=== PATIENT | male | born 1950 | race Caucasian/White ===

== ENCOUNTER 2021-09-02 07:18 | Inpatient (IN) ==
[2021-09-02] MEDS ORDERED: SODIUM CHLORIDE 0.9% 1,000 ML IV STA ×3 (11:27→13:39)
[2021-09-02 12:03] LABS: Basophils # 0.1 10*3/uL (0.0-0.2); Basophils % 0.6 % (0.0-0.8); Eosinophils # 0.3 10*3/uL (0.0-0.87); Eosinophils % 1.7 % (0.00-10.9); Hemoglobin 15.4 GM/DL (14.0-18.0); Immature Granulocytes % 4.2 %; Immature Granulocytes Absolute 0.73 #; Lymphocytes # 2.4 10*3/uL (1.4-4.0); Lymphocytes % 13.8 % (21.2-54.2); Mean Corpuscular HGB Conc 33.5 GM/DL (32-36); Mean Corpuscular Volume 86.6 FL (87-102); Mean Platelet Volume 8.9 FL (9.6-12.0); Monocytes % 7.6 % (1.7-12.7); Neutrophils % 72.1 % (38.7-73.9); Platelet Count 279 T/CUMM (130-400); Red Blood Count 5.31 MC/CUMM (3.8-5.5); Red Cell Distribution Width 14.4 % (9.3-17.3); White Blood Count 17.2 T/CUMM (4-12)
[2021-09-02 12:07] LABS: Bilirubin,Urine Negative (Negative); Blood, Urine Negative (Negative); Glucose,Urine (UA) Negative (Negative); Hyaline Casts,Urine 49 /LPF (0-3); Ketones,Urine Negative (Negative); Mucus,Urine Many /LPF (Occasional); Nitrite,Urine Negative (Negative); Protein,Urine Negative; Urine Appearance Slightly Hazy (Clear); Urine Color Amber (Yellow); Urine Specific Gravity 1.021 (1.001-1.035); Urine Urobilinogen < 2.0 EU/DL (<2.0)
[2021-09-02 12:36] LABS: Albumin 2.9 G/DL (3.4-5.0); Bilirubin,Total 1.7 MG/DL (0.20-1.00); Calcium 8.9 MG/DL (8.5-10.1); Osmolality,Calculated 272.2 MOS/KG (273-304); Potassium 4.4 MMOL/L (3.5-5.1); Total Protein 7.3 G/DL (6.4-8.2)
[2021-09-02 12:43] LABS: Band Neutrophils 6 % (0-10); Lymphocytes 16 % (20-55); Metamyelocytes 1 %; Myelocytes 1 %; Platelet Estimate Normal; Segmented Neutrophils 68 % (50-85); Total Cells Counted 100
[2021-09-02 12:44] LABS: Anisocytosis Slight
[2021-09-02] MEDS ORDERED: CIPROFLOXACIN INJ 400 MG/200 ML PREMIX IV STA (13:48)
[2021-09-02] MEDS ORDERED: metroNIDAZOLE INJ 500 MG/100 ML PREMIX IV STA (13:48)
[2021-09-02] MEDS ORDERED: DEXTROSE 10% 250 ML BAG IV PRN (13:49)
[2021-09-02] MEDS ORDERED: GLUCAGON 1 MG VIAL IM PRN (13:49)
[2021-09-02] MEDS ORDERED: ONDANSETRON 4 MG/2 ML VIAL IV PRN (13:49)
[2021-09-02] MEDS ORDERED: MORPHINE 2 MG/1 ML SYRINGE IV PRN (13:49)
[2021-09-02] MEDS ORDERED: ACETAMINOPHEN 325 MG TABLET PO PRN (13:49)
[2021-09-02] MEDS: CIPROFLOXACIN INJ 400 MG/200 ML PREMIX IV SCH (14:47)
[2021-09-02] MEDS: ENOXAPARIN 40 MG/0.4 ML SYRINGE SUBCUT SCH (14:51)
[2021-09-02] MEDS: metroNIDAZOLE INJ 500 MG/100 ML PREMIX IV SCH ×2 (15:57→22:23)
[2021-09-02] MEDS: SODIUM CHLORIDE 0.9% 1,000 ML IV SCH ×2 (16:28→22:24)
[2021-09-03] MEDS: CIPROFLOXACIN INJ 400 MG/200 ML PREMIX IV SCH ×2 (01:59→16:01)
[2021-09-03 05:10] LABS: Basophils # 0.1 10*3/uL (0.0-0.2); Basophils % 0.9 % (0.0-0.8); Eosinophils # 0.3 10*3/uL (0.0-0.87); Eosinophils % 3.1 % (0.00-10.9); Hematocrit 40.4 VOL% (42.0-52.0); Hemoglobin 12.9 GM/DL (14.0-18.0); Immature Granulocytes % 3.3 %; Lymphocytes # 1.5 10*3/uL (1.4-4.0); Lymphocytes % 15.8 % (21.2-54.2); Mean Corpuscular HGB Conc 31.9 GM/DL (32-36); Mean Corpuscular Volume 91.2 FL (87-102); Mean Platelet Volume 10.5 FL (9.6-12.0); Monocytes % 9.9 % (1.7-12.7); Platelet Count 140 T/CUMM (130-400); Red Blood Count 4.43 MC/CUMM (3.8-5.5); Red Cell Distribution Width 14.6 % (9.3-17.3); White Blood Count 9.2 T/CUMM (4-12)
[2021-09-03 05:31] LABS: Calcium 8.1 MG/DL (8.5-10.1); Osmolality,Calculated 264.5 MOS/KG (273-304); Potassium 4.4 MMOL/L (3.5-5.1)
[2021-09-03] MEDS: metroNIDAZOLE INJ 500 MG/100 ML PREMIX IV SCH ×3 (06:22→21:33)
[2021-09-03] MEDS: SODIUM CHLORIDE 0.9% 1,000 ML IV SCH ×2 (06:24→16:02)
[2021-09-03] MEDS: PANTOPRAZOLE 40 MG TABLET PO SCH (08:02)
[2021-09-03] MEDS: ENOXAPARIN 40 MG/0.4 ML SYRINGE SUBCUT SCH (13:42)
[2021-09-03] MEDS ORDERED: BENZONATATE 100 MG CAPSULE PO PRN (14:34)
[2021-09-04] MEDS: SODIUM CHLORIDE 0.9% 1,000 ML IV SCH ×2 (00:47→11:55)
[2021-09-04] MEDS: CIPROFLOXACIN INJ 400 MG/200 ML PREMIX IV SCH ×2 (02:11→16:05)
[2021-09-04] MEDS: metroNIDAZOLE INJ 500 MG/100 ML PREMIX IV SCH ×3 (04:55→20:27)
[2021-09-04 05:33] LABS: Basophils # 0.1 10*3/uL (0.0-0.2); Basophils % 0.7 % (0.0-0.8); Eosinophils # 0.3 10*3/uL (0.0-0.87); Eosinophils % 3.4 % (0.00-10.9); Hematocrit 35.4 VOL% (42.0-52.0); Hemoglobin 11.7 GM/DL (14.0-18.0); Immature Granulocytes % 1.8 %; Immature Granulocytes Absolute 0.15 #; Lymphocytes # 1.3 10*3/uL (1.4-4.0); Lymphocytes % 15.9 % (21.2-54.2); Mean Corpuscular HGB Conc 33.1 GM/DL (32-36); Mean Corpuscular Volume 87.6 FL (87-102); Mean Platelet Volume 8.9 FL (9.6-12.0); Monocytes % 12.2 % (1.7-12.7); Platelet Count 199 T/CUMM (130-400); Red Blood Count 4.04 MC/CUMM (3.8-5.5); Red Cell Distribution Width 14.3 % (9.3-17.3); White Blood Count 8.4 T/CUMM (4-12)
[2021-09-04 05:54] LABS: Osmolality,Calculated 261.5 MOS/KG (273-304); Potassium 3.8 MMOL/L (3.5-5.1)
[2021-09-04] MEDS: PANTOPRAZOLE 40 MG TABLET PO SCH (08:38)
[2021-09-04] MEDS ORDERED: LEVOTHYROXINE 75 MCG TABLET PO SCH (09:00)
[2021-09-04] MEDS: ASPIRIN EC 325 MG TABLET PO SCH (09:43)
[2021-09-04] MEDS: CHOLECALCIFEROL 5,000 UNIT TABLET PO SCH (09:43)
[2021-09-04] MEDS: HYDROmorphone 2 MG/1 ML VIAL IV PRN ×2 (10:01→18:10)
[2021-09-04] MEDS: ENOXAPARIN 40 MG/0.4 ML SYRINGE SUBCUT SCH (14:18)
[2021-09-04] MEDS: predniSONE 20 MG TABLET PO SCH (16:06)
[2021-09-05] MEDS: SODIUM CHLORIDE 0.9% 1,000 ML IV SCH
[2021-09-05] MEDS: CIPROFLOXACIN INJ 400 MG/200 ML PREMIX IV SCH (02:26)
[2021-09-05] MEDS: metroNIDAZOLE INJ 500 MG/100 ML PREMIX IV SCH (05:02)
[2021-09-05 05:24] LABS: Basophils % 0.3 % (0.0-0.8); Eosinophils % 0.6 % (0.00-10.9); Hematocrit 33.9 VOL% (42.0-52.0); Hemoglobin 11.2 GM/DL (14.0-18.0); Immature Granulocytes % 1.4 %; Immature Granulocytes Absolute 0.09 #; Lymphocytes # 0.9 10*3/uL (1.4-4.0); Lymphocytes % 14.3 % (21.2-54.2); Mean Corpuscular Volume 86.9 FL (87-102); Mean Platelet Volume 9.1 FL (9.6-12.0); Monocytes % 10.7 % (1.7-12.7); Neutrophils % 72.7 % (38.7-73.9); Platelet Count 222 T/CUMM (130-400); Red Cell Distribution Width 14.2 % (9.3-17.3); White Blood Count 6.4 T/CUMM (4-12)
[2021-09-05 05:55] LABS: Calcium 8.4 MG/DL (8.5-10.1); Osmolality,Calculated 268.2 MOS/KG (273-304)
[2021-09-05 05:57] LABS: Risk Ratio 3.39; VLDL Cholesterol 18.4 MG/DL
[2021-09-05] MEDS ORDERED: LEVOTHYROXINE 150 MCG TABLET PO SCH (06:30)
[2021-09-05] MEDS: predniSONE 20 MG TABLET PO SCH (08:48)
[2021-09-05] MEDS: ASPIRIN EC 325 MG TABLET PO SCH (08:49)
[2021-09-05] MEDS: PANTOPRAZOLE 40 MG TABLET PO SCH (08:49)
[2021-09-05] MEDS: CHOLECALCIFEROL 5,000 UNIT TABLET PO SCH (08:49)
[2021-09-05 12:28] VITALS: BP 116/60
[2021-09-05] MEDS ORDERED: metroNIDAZOLE 500 MG TABLET PO SCH (15:00)
[2021-09-05] MEDS ORDERED: CIPROFLOXACIN 500 MG TABLET PO SCH (21:00)
== END 2021-09-05 13:17 | disposition home or self-care (01) | DRG 392 ==
LOC: SUATTDRO → N.ED 07:18 → N.EDINP 13:49 → N.5E 19:10
PROVIDERS: ADMIT Internal Medicine; ATTEND Internal Medicine

== ENCOUNTER 2021-10-21 12:11 | Inpatient (IN) ==
[2021-10-21] MEDS ORDERED: SODIUM CHLORIDE 0.9% 1,000 ML IV STA (12:32)
[2021-10-21] MEDS ORDERED: LEVOFLOXACIN INJ 750 MG/150 ML PREMIX IV STA (12:32)
[2021-10-21 13:25] LABS: Bacteria,Urine Occasional /HPF (Few); Mucus,Urine Few /LPF (Occasional); RBC,Urine 5 /HPF (0-4); Squamous Epithelial Cell,Urine Occasional /HPF (0-10)
[2021-10-21 13:28] LABS: Bilirubin,Urine Negative (Negative); Blood, Urine Negative (Negative); Glucose,Urine (UA) Negative (Negative); Ketones,Urine Negative (Negative); Nitrite,Urine Negative (Negative); Protein,Urine Negative (Negative); Urine Appearance Clear (Clear); Urine Color Yellow (Yellow); Urine Specific Gravity > 1.030 (1.001-1.035); Urine Urobilinogen 0.2 eU/dL (<2.0)
[2021-10-21 13:34] LABS: Albumin 2.9 G/DL (3.4-5.0); Bilirubin,Total 0.5 MG/DL (0.20-1.00); Calcium 8.5 MG/DL (8.5-10.1); Potassium 4.3 MMOL/L (3.5-5.1); Total Protein 6.8 G/DL (6.4-8.2)
[2021-10-21 13:57] LABS: Basophils # 0.1 10*3/uL (0.0-0.2); Basophils % 0.5 % (0.0-0.8); Eosinophils # 0.3 10*3/uL (0.0-0.87); Eosinophils % 2.8 % (0.00-10.9); Hematocrit 36.5 VOL% (42.0-52.0); Hemoglobin 11.8 GM/DL (14.0-18.0); Immature Granulocytes % 0.9 %; Immature Granulocytes Absolute 0.09 #; Lymphocytes % 20.3 % (21.2-54.2); Mean Corpuscular HGB Conc 32.3 GM/DL (32-36); Mean Corpuscular Volume 91.3 FL (87-102); Mean Platelet Volume 8.9 FL (9.6-12.0); Monocytes % 10.7 % (1.7-12.7); Neutrophils % 64.8 % (38.7-73.9); Platelet Count 240 T/CUMM (130-400); Red Cell Distribution Width 14.7 % (9.3-17.3); White Blood Count 9.9 T/CUMM (4-12)
[2021-10-21] MEDS ORDERED: GLUCAGON 1 MG VIAL IM PRN (14:41)
[2021-10-21] MEDS ORDERED: ONDANSETRON 4 MG/2 ML VIAL IV PRN (14:41)
[2021-10-21] MEDS ORDERED: ACETAMINOPHEN 325 MG TABLET PO PRN (14:41)
[2021-10-21] MEDS ORDERED: hydrALAZINE 20 MG/1 ML VIAL IV PRN (14:41)
[2021-10-21] MEDS ORDERED: DEXTROSE 10% 250 ML BAG IV PRN (14:47)
[2021-10-21] MEDS: LACTATED RINGERS 1,000 ML IV SCH (15:20)
[2021-10-21] MEDS: metroNIDAZOLE INJ 500 MG in PREMIX 1 EACH IV SCH ×2 (15:20→23:16)
[2021-10-21] MEDS: PANTOPRAZOLE 40 MG VIAL IV SCH (15:26)
[2021-10-21] MEDS: MORPHINE 2 MG/1 ML SYRINGE IV PRN ×3 (15:49→23:19)
[2021-10-22] MEDS: LACTATED RINGERS 1,000 ML IV SCH ×3 (01:27→20:58)
[2021-10-22] MEDS ORDERED: CIPROFLOXACIN INJ 400 MG/200 ML PREMIX IV SCH (01:30)
[2021-10-22 05:38] LABS: Basophils % 0.4 % (0.0-0.8); Eosinophils # 0.3 10*3/uL (0.0-0.87); Eosinophils % 3.3 % (0.00-10.9); Hematocrit 35.1 VOL% (42.0-52.0); Hemoglobin 11.5 GM/DL (14.0-18.0); Immature Granulocytes % 0.9 %; Immature Granulocytes Absolute 0.08 #; Lymphocytes # 1.7 10*3/uL (1.4-4.0); Lymphocytes % 19.5 % (21.2-54.2); Mean Corpuscular HGB Conc 32.8 GM/DL (32-36); Mean Corpuscular Volume 89.8 FL (87-102); Mean Platelet Volume 9.1 FL (9.6-12.0); Monocytes % 9.9 % (1.7-12.7); Platelet Count 222 T/CUMM (130-400); Red Blood Count 3.91 MC/CUMM (3.8-5.5); Red Cell Distribution Width 14.6 % (9.3-17.3); White Blood Count 8.5 T/CUMM (4-12)
[2021-10-22 06:15] LABS: Calcium 8.1 MG/DL (8.5-10.1); Osmolality,Calculated 271.7 MOS/KG (273-304); Potassium 3.6 MMOL/L (3.5-5.1)
[2021-10-22] MEDS: metroNIDAZOLE INJ 500 MG in PREMIX 1 EACH IV SCH (09:43)
[2021-10-22] MEDS: PANTOPRAZOLE 40 MG VIAL IV SCH ×2 (09:44→20:57)
[2021-10-22] MEDS ORDERED: predniSONE 20 MG TABLET PO SCH (13:00)
[2021-10-22] MEDS ORDERED: COLCHICINE 0.6 MG CAPSULE PO ONE (14:00)
[2021-10-22] MEDS ORDERED: HYDROmorphone 1 MG/1 ML SYRINGE IV PRN ×2 (14:02)
[2021-10-22] MEDS: MEROPENEM 500 MG in SODIUM CHLORIDE 0.9% 100 ML IV SCH ×2 (14:21→20:57)
[2021-10-22] MEDS: oxyCODONE/ACETAMINOPHEN 5-325 MG TABLET PO PRN (17:58)
[2021-10-23] MEDS: MEROPENEM 500 MG in SODIUM CHLORIDE 0.9% 100 ML IV SCH ×4 (02:28→20:06)
[2021-10-23 03:59] LABS: Basophils % 0.4 % (0.0-0.8); Eosinophils # 0.3 10*3/uL (0.0-0.87); Eosinophils % 3.5 % (0.00-10.9); Hemoglobin 12.1 GM/DL (14.0-18.0); Immature Granulocytes % 0.7 %; Immature Granulocytes Absolute 0.05 #; Lymphocytes # 1.8 10*3/uL (1.4-4.0); Lymphocytes % 24.2 % (21.2-54.2); Mean Corpuscular HGB Conc 32.7 GM/DL (32-36); Mean Corpuscular Volume 89.2 FL (87-102); Mean Platelet Volume 8.9 FL (9.6-12.0); Monocytes % 9.5 % (1.7-12.7); Neutrophils % 61.7 % (38.7-73.9); Platelet Count 230 T/CUMM (130-400); Red Blood Count 4.15 MC/CUMM (3.8-5.5); Red Cell Distribution Width 14.3 % (9.3-17.3); White Blood Count 7.4 T/CUMM (4-12)
[2021-10-23 04:13] LABS: Calcium 8.3 MG/DL (8.5-10.1); Osmolality,Calculated 274.5 MOS/KG (273-304); Potassium 3.6 MMOL/L (3.5-5.1)
[2021-10-23] MEDS: oxyCODONE/ACETAMINOPHEN 5-325 MG TABLET PO PRN (04:34)
[2021-10-23] MEDS: LEVOTHYROXINE 150 MCG TABLET PO SCH (05:56)
[2021-10-23] MEDS: OLMESARTAN 20 MG TABLET PO SCH (09:52)
[2021-10-23] MEDS: PANTOPRAZOLE 40 MG VIAL IV SCH ×2 (09:53→20:06)
[2021-10-23] MEDS: LACTATED RINGERS 1,000 ML IV SCH ×2 (16:10→20:06)
[2021-10-24] MEDS: MEROPENEM 500 MG in SODIUM CHLORIDE 0.9% 100 ML IV SCH (02:02)
[2021-10-24] MEDS: LACTATED RINGERS 1,000 ML IV SCH (02:02)
[2021-10-24] MEDS: LEVOTHYROXINE 150 MCG TABLET PO SCH (05:38)
[2021-10-24] MEDS ORDERED: ERTAPENEM 1,000 MG in SODIUM CHLORIDE 0.9% 100 ML IV ONE (09:00)
[2021-10-24] MEDS: PANTOPRAZOLE 40 MG VIAL IV SCH (09:22)
[2021-10-24] MEDS: OLMESARTAN 20 MG TABLET PO SCH (09:22)
[2021-10-24 12:50] VITALS: BP 149/80
== END 2021-10-24 13:00 | disposition home or self-care (01) | DRG 392 ==
LOC: N.ED 12:11 → SUATTDRO 14:41 → N.EDINP 14:41 → N.5E 16:57
PROVIDERS: ADMIT Internal Medicine; ATTEND Emergency Medicine

== ENCOUNTER 2021-11-05 06:55 | Inpatient (IN) ==
[2021-11-05] MEDS ORDERED: ONDANSETRON 4 MG/2 ML VIAL IV STA (07:23)
[2021-11-05] MEDS ORDERED: SODIUM CHLORIDE 0.9% 1,000 ML IV STA (07:23)
[2021-11-05] MEDS ORDERED: HYDROmorphone 1 MG/1 ML SYRINGE IV STA (07:23)
[2021-11-05 07:33] LABS: Basophils % 0.2 % (0.0-0.8); Eosinophils % 0.1 % (0.00-10.9); Hematocrit 41.8 VOL% (42.0-52.0); Hemoglobin 13.3 GM/DL (14.0-18.0); Immature Granulocytes % 0.5 %; Immature Granulocytes Absolute 0.07 #; Lymphocytes # 1.2 10*3/uL (1.4-4.0); Lymphocytes % 9.1 % (21.2-54.2); Mean Corpuscular HGB Conc 31.8 GM/DL (32-36); Mean Corpuscular Volume 92.7 FL (87-102); Mean Platelet Volume 9.2 FL (9.6-12.0); Monocytes # 0.7 10*3/uL (0.11-0.8); Monocytes % 5.1 % (1.7-12.7); Platelet Count 386 T/CUMM (130-400); Red Blood Count 4.51 MC/CUMM (3.8-5.5); Red Cell Distribution Width 14.2 % (9.3-17.3); White Blood Count 13.6 T/CUMM (4-12)
[2021-11-05 07:51] LABS: Albumin 3.1 G/DL (3.4-5.0); Bilirubin,Total 0.6 MG/DL (0.20-1.00); Calcium 8.8 MG/DL (8.5-10.1); Osmolality,Calculated 287.1 MOS/KG (273-304); Potassium 3.8 MMOL/L (3.5-5.1); Total Protein 6.7 G/DL (6.4-8.2)
[2021-11-05] MEDS: ERTAPENEM 1,000 MG in SODIUM CHLORIDE 0.9% 100 ML IV SCH (08:40)
[2021-11-05] MEDS ORDERED: SODIUM CHLORIDE 0.9% 2,950 ML IV ONE (08:40)
[2021-11-05 09:01] LABS: INR 0.9; PT Patient Result 10.6 SECS (10.5-12.0); Partial Thromboplastin Time < 20.0 SECS (23.8-32.1)
[2021-11-05 09:24] LABS: Mucus,Urine Occasional /LPF (Occasional); RBC,Urine 1 /HPF (0-4)
[2021-11-05 09:25] LABS: Bilirubin,Urine Negative (Negative); Blood, Urine Negative (Negative); Glucose,Urine (UA) Negative (Negative); Ketones,Urine Negative (Negative); Nitrite,Urine Negative (Negative); Protein,Urine Negative (Negative); Urine Appearance Clear (Clear); Urine Color Yellow (Yellow); Urine Specific Gravity 1.015 (1.001-1.035); Urine Urobilinogen 0.2 eU/dL (<2.0); Urine pH 6.5 (4.5-8.0)
[2021-11-05] MEDS ORDERED: fentaNYL 100 MCG/2 ML VIAL ONE ×2 (09:49→10:39)
[2021-11-05] MEDS ORDERED: SEVOFLURANE 1 UNIT/15 MINUTE INH ONE ×3 (09:50→11:38)
[2021-11-05] MEDS ORDERED: ROCURONIUM 50 MG/5 ML VIAL IV ONE (09:50)
[2021-11-05] MEDS ORDERED: SUCCINYLCHOLINE 200 MG/10 ML VIAL ONE (09:50)
[2021-11-05] MEDS ORDERED: DEXAMETHASONE 4 MG/1 ML VIAL ONE ×2 (09:50→11:10)
[2021-11-05] MEDS ORDERED: ETOMIDATE 40 MG/20 ML VIAL IV ONE (09:50)
[2021-11-05] MEDS ORDERED: LIDOCAINE 2% 5 ML VIAL ONE (09:50)
[2021-11-05] MEDS ORDERED: propofoL 200 MG/20 ML VIAL IV ONE (09:50)
[2021-11-05] MEDS ORDERED: ONDANSETRON 4 MG/2 ML VIAL ONE (09:50)
[2021-11-05] MEDS ORDERED: PHENYLEPHRINE 1 MG/10 ML SYRINGE IV ONE ×2 (10:33→11:15)
[2021-11-05] MEDS ORDERED: ACETAMINOPHEN INJ 1,000 MG/100 ML VIAL IV ONE (11:13)
[2021-11-05] MEDS ORDERED: GLYCOPYRROLATE 0.4 MG/2 ML VIAL ONE ×2 (11:13→11:16)
[2021-11-05] MEDS ORDERED: NEOSTIGMINE 10 MG/10 ML VIAL ONE (11:13)
[2021-11-05] MEDS ORDERED: ONDANSETRON 4 MG/2 ML VIAL IV PRN (11:33)
[2021-11-05] MEDS ORDERED: MORPHINE 2 MG/1 ML SYRINGE IV PRN (11:33)
[2021-11-05] MEDS ORDERED: PHENYLEPHRINE DRIP 20 MG/250 ML PREMIX IV ONE (11:51)
[2021-11-05] MEDS: KETOROLAC 15 MG/1 ML VIAL IV SCH (12:57)
[2021-11-05] MEDS: DEXTROSE 5% LACTATED RINGERS 1,000 ML IV SCH ×2 (13:01→20:06)
[2021-11-06] MEDS: KETOROLAC 15 MG/1 ML VIAL IV SCH ×5 (00:43→19:23)
[2021-11-06] MEDS: DEXTROSE 5% LACTATED RINGERS 1,000 ML IV SCH ×2 (04:10→15:25)
[2021-11-06 05:31] LABS: Basophils % 0.1 % (0.0-0.8); Hematocrit 34.4 VOL% (42.0-52.0); Hemoglobin 11.1 GM/DL (14.0-18.0); Immature Granulocytes % 0.4 %; Immature Granulocytes Absolute 0.04 #; Lymphocytes # 0.9 10*3/uL (1.4-4.0); Lymphocytes % 8.4 % (21.2-54.2); Mean Corpuscular HGB Conc 32.3 GM/DL (32-36); Mean Corpuscular Volume 92.2 FL (87-102); Mean Platelet Volume 9.7 FL (9.6-12.0); Monocytes % 8.8 % (1.7-12.7); Neutrophils % 82.3 % (38.7-73.9); Platelet Count 251 T/CUMM (130-400); Red Blood Count 3.73 MC/CUMM (3.8-5.5); Red Cell Distribution Width 14.2 % (9.3-17.3); White Blood Count 11.1 T/CUMM (4-12)
[2021-11-06 05:47] LABS: Calcium 8.3 MG/DL (8.5-10.1); Osmolality,Calculated 288.1 MOS/KG (273-304)
[2021-11-06 05:51] LABS: Lymphocytes 6 % (20-55); Platelet Estimate Adequate; Total Cells Counted 100
[2021-11-06] MEDS: HYDROmorphone 1 MG/1 ML SYRINGE IV PRN ×2 (07:56→21:50)
[2021-11-06] MEDS: PANTOPRAZOLE 40 MG TABLET PO SCH (09:02)
[2021-11-06] MEDS: ERTAPENEM 1,000 MG in SODIUM CHLORIDE 0.9% 100 ML IV SCH (10:07)
[2021-11-07] MEDS: KETOROLAC 15 MG/1 ML VIAL IV SCH ×4 (01:21→19:41)
[2021-11-07] MEDS: DEXTROSE 5% LACTATED RINGERS 1,000 ML IV SCH ×2 (04:37→19:41)
[2021-11-07] MEDS: HYDROmorphone 1 MG/1 ML SYRINGE IV PRN ×2 (04:37→10:10)
[2021-11-07] MEDS: LEVOTHYROXINE 150 MCG TABLET PO SCH (06:44)
[2021-11-07] MEDS: ERTAPENEM 1,000 MG in SODIUM CHLORIDE 0.9% 100 ML IV SCH (09:05)
[2021-11-07] MEDS: OLMESARTAN 20 MG TABLET PO SCH (09:05)
[2021-11-07] MEDS: PANTOPRAZOLE 40 MG TABLET PO SCH (09:05)
[2021-11-08] MEDS: KETOROLAC 15 MG/1 ML VIAL IV SCH ×4 (00:15→20:14)
[2021-11-08] MEDS: HYDROmorphone 1 MG/1 ML SYRINGE IV PRN ×4 (02:22→20:19)
[2021-11-08 04:53] LABS: Basophils % 0.3 % (0.0-0.8); Eosinophils # 0.2 10*3/uL (0.0-0.87); Eosinophils % 1.8 % (0.00-10.9); Hematocrit 35.5 VOL% (42.0-52.0); Hemoglobin 11.3 GM/DL (14.0-18.0); Immature Granulocytes % 0.8 %; Immature Granulocytes Absolute 0.09 #; Lymphocytes # 1.2 10*3/uL (1.4-4.0); Lymphocytes % 9.9 % (21.2-54.2); Mean Corpuscular HGB Conc 31.8 GM/DL (32-36); Mean Corpuscular Volume 90.6 FL (87-102); Mean Platelet Volume 9.8 FL (9.6-12.0); Monocytes # 1.2 10*3/uL (0.11-0.8); Monocytes % 10.6 % (1.7-12.7); Neutrophils % 76.6 % (38.7-73.9); Platelet Count 281 T/CUMM (130-400); Red Blood Count 3.92 MC/CUMM (3.8-5.5); Red Cell Distribution Width 13.5 % (9.3-17.3); White Blood Count 11.6 T/CUMM (4-12)
[2021-11-08 05:08] LABS: Calcium 7.9 MG/DL (8.5-10.1); Osmolality,Calculated 282.3 MOS/KG (273-304); Potassium 3.7 MMOL/L (3.5-5.1)
[2021-11-08] MEDS: LEVOTHYROXINE 150 MCG TABLET PO SCH (05:44)
[2021-11-08] MEDS: ERTAPENEM 1,000 MG in SODIUM CHLORIDE 0.9% 100 ML IV SCH (08:55)
[2021-11-08] MEDS: OLMESARTAN 20 MG TABLET PO SCH (09:18)
[2021-11-08] MEDS: PANTOPRAZOLE 40 MG TABLET PO SCH (09:18)
[2021-11-08] MEDS: DEXTROSE 5% LACTATED RINGERS 1,000 ML IV SCH ×2 (09:19→09:20)
[2021-11-08] MEDS ORDERED: LIDOCAINE 2% 5 ML VIAL ONE (11:31)
[2021-11-08] MEDS ORDERED: propofoL 200 MG/20 ML VIAL IV ONE (11:31)
[2021-11-08] MEDS ORDERED: fentaNYL 100 MCG/2 ML VIAL ONE (11:31)
[2021-11-08] MEDS ORDERED: SUCCINYLCHOLINE 200 MG/10 ML VIAL ONE (11:31)
[2021-11-08] MEDS ORDERED: MIDAZOLAM 2 MG/2 ML VIAL ONE (11:31)
[2021-11-08] MEDS ORDERED: PHENYLEPHRINE 1 MG/10 ML SYRINGE IV ONE (12:07)
[2021-11-08] MEDS ORDERED: SEVOFLURANE 1 UNIT/15 MINUTE INH ONE (12:15)
[2021-11-08] MEDS: TAMSULOSIN 0.4 MG CAPSULE PO SCH (20:14)
[2021-11-09] MEDS: HYDROmorphone 1 MG/1 ML SYRINGE IV PRN ×2 (00:42→18:06)
[2021-11-09] MEDS: KETOROLAC 15 MG/1 ML VIAL IV SCH ×4 (00:42→18:06)
[2021-11-09] MEDS: DEXTROSE 5% LACTATED RINGERS 1,000 ML IV SCH ×3 (04:24→18:09)
[2021-11-09] MEDS: LEVOTHYROXINE 150 MCG TABLET PO SCH (06:39)
[2021-11-09] MEDS: OLMESARTAN 20 MG TABLET PO SCH (09:36)
[2021-11-09] MEDS: PANTOPRAZOLE 40 MG TABLET PO SCH (09:36)
[2021-11-09] MEDS: ERTAPENEM 1,000 MG in SODIUM CHLORIDE 0.9% 100 ML IV SCH (09:37)
[2021-11-09] MEDS: TAMSULOSIN 0.4 MG CAPSULE PO SCH ×2 (09:37→20:46)
[2021-11-09] MEDS: AMINO ACIDS/DEXT/LYTES 4.25-5% 2,000 ML IV SCH (16:15)
[2021-11-10] MEDS: KETOROLAC 15 MG/1 ML VIAL IV SCH ×2 (00:34→06:52)
[2021-11-10] MEDS: HYDROmorphone 1 MG/1 ML SYRINGE IV PRN ×2 (00:35→17:25)
[2021-11-10 05:37] LABS: Basophils % 0.4 % (0.0-0.8); Eosinophils # 0.4 10*3/uL (0.0-0.87); Eosinophils % 3.5 % (0.00-10.9); Hematocrit 32.6 VOL% (42.0-52.0); Hemoglobin 10.7 GM/DL (14.0-18.0); Immature Granulocytes % 0.9 %; Lymphocytes # 1.3 10*3/uL (1.4-4.0); Lymphocytes % 12.3 % (21.2-54.2); Mean Corpuscular HGB Conc 32.8 GM/DL (32-36); Mean Corpuscular Volume 89.3 FL (87-102); Mean Platelet Volume 9.3 FL (9.6-12.0); Monocytes # 1.1 10*3/uL (0.11-0.8); Monocytes % 9.8 % (1.7-12.7); Neutrophils % 73.1 % (38.7-73.9); Platelet Count 312 T/CUMM (130-400); Red Blood Count 3.65 MC/CUMM (3.8-5.5); Red Cell Distribution Width 13.2 % (9.3-17.3); White Blood Count 10.7 T/CUMM (4-12)
[2021-11-10] MEDS: LEVOTHYROXINE 150 MCG TABLET PO SCH (06:47)
[2021-11-10] MEDS: TAMSULOSIN 0.4 MG CAPSULE PO SCH ×3 (09:54→20:26)
[2021-11-10] MEDS: OLMESARTAN 20 MG TABLET PO SCH (09:54)
[2021-11-10] MEDS: ERTAPENEM 1,000 MG in SODIUM CHLORIDE 0.9% 100 ML IV SCH (09:54)
[2021-11-10] MEDS: PANTOPRAZOLE 40 MG TABLET PO SCH (09:54)
[2021-11-10] MEDS: DEXTROSE 5% LACTATED RINGERS 1,000 ML IV SCH ×2 (10:26→19:50)
[2021-11-10] MEDS: AMINO ACIDS/DEXT/LYTES 4.25-5% 2,000 ML IV SCH (16:42)
[2021-11-11] MEDS: HYDROmorphone 1 MG/1 ML SYRINGE IV PRN ×3 (00:16→16:44)
[2021-11-11] MEDS: LEVOTHYROXINE 150 MCG TABLET PO SCH (06:42)
[2021-11-11 07:03] LABS: Osmolality,Calculated 272.8 MOS/KG (273-304); Phosphorous 3.1 MG/DL (2.5-4.9); Potassium 3.8 MMOL/L (3.5-5.1)
[2021-11-11] MEDS: TAMSULOSIN 0.4 MG CAPSULE PO SCH ×2 (09:15→21:18)
[2021-11-11] MEDS: PANTOPRAZOLE 40 MG TABLET PO SCH (09:15)
[2021-11-11] MEDS: OLMESARTAN 20 MG TABLET PO SCH (09:15)
[2021-11-11] MEDS: ERTAPENEM 1,000 MG in SODIUM CHLORIDE 0.9% 100 ML IV SCH (09:20)
[2021-11-11] MEDS: FAT EMULSION 20% 250 ML IV SCH (10:33)
[2021-11-11] MEDS: DEXTROSE 5% LACTATED RINGERS 1,000 ML IV SCH (16:48)
[2021-11-11] MEDS ORDERED: MULTIVITAMIN INJ 10 ML in AMINO ACIDS/DEXT/LYTES 4.25-5% 2,000 ML IV SCH (17:00)
[2021-11-11 17:13] LABS: Amorphous Crystals,Urine Occasional /HPF (Few); Mucus,Urine Occasional /LPF (Occasional)
[2021-11-11 17:20] LABS: Bilirubin,Urine Negative (Negative); Blood, Urine Negative (Negative); Glucose,Urine (UA) Negative (Negative); Ketones,Urine Negative (Negative); Nitrite,Urine Negative (Negative); Protein,Urine Negative (Negative); Urine Appearance Clear (Clear); Urine Color Yellow (Yellow); Urine Specific Gravity 1.015 (1.001-1.035); Urine Urobilinogen 0.2 eU/dL (<2.0)
[2021-11-11] MEDS: AMINO ACIDS/DEXT/LYTES 4.25-5% 2,000 ML IV SCH (18:04)
[2021-11-11] MEDS ORDERED: COLCHICINE 0.6 MG CAPSULE PO ONE ×2 (18:57→18:58)
[2021-11-11] MEDS: KETOROLAC 30 MG/1 ML VIAL IV PRN (21:22)
[2021-11-12] MEDS: LEVOTHYROXINE 150 MCG TABLET PO SCH (05:30)
[2021-11-12] MEDS: DEXTROSE 5% LACTATED RINGERS 1,000 ML IV SCH ×3 (08:04→11:34)
[2021-11-12] MEDS: PANTOPRAZOLE 40 MG TABLET PO SCH (08:28)
[2021-11-12] MEDS: TAMSULOSIN 0.4 MG CAPSULE PO SCH ×2 (08:28→21:26)
[2021-11-12] MEDS: OLMESARTAN 20 MG TABLET PO SCH (08:28)
[2021-11-12] MEDS: ERTAPENEM 1,000 MG in SODIUM CHLORIDE 0.9% 100 ML IV SCH (10:45)
[2021-11-12] MEDS ORDERED: GLUCAGON 1 MG VIAL IM PRN (10:54)
[2021-11-12] MEDS ORDERED: DEXTROSE 10% 250 ML BAG IV PRN (10:54)
[2021-11-12] MEDS: HYDROmorphone 1 MG/1 ML SYRINGE IV PRN (11:08)
[2021-11-12] MEDS: INSULIN REGULAR 100 UNIT/ML SUBCUT SCH ×2 (12:11→18:57)
[2021-11-12] MEDS ORDERED: MULTIVITAMIN INJ 10 ML in AMINO ACIDS/DEXT/LYTES 4.25-5% 2,000 ML IV SCH (17:00)
[2021-11-12] MEDS ORDERED: DEXTROSE 10% 1,000 ML IV PRN (17:00)
[2021-11-12] MEDS: MULTIVITAMIN INJ 10 ML in AMINO ACIDS/DEXT/LYTES 5-15% 2,000 ML IV SCH (18:45)
[2021-11-12] MEDS: FINASTERIDE 5 MG TABLET PO SCH (21:26)
[2021-11-12] MEDS: KETOROLAC 30 MG/1 ML VIAL IV PRN (21:29)
[2021-11-13] MEDS: INSULIN REGULAR 100 UNIT/ML SUBCUT SCH ×5 (05:20→23:11)
[2021-11-13] MEDS: LEVOTHYROXINE 150 MCG TABLET PO SCH (06:00)
[2021-11-13 06:56] LABS: Basophils % 0.5 % (0.0-0.8); Eosinophils # 0.4 10*3/uL (0.0-0.87); Eosinophils % 5.1 % (0.00-10.9); Hematocrit 30.7 VOL% (42.0-52.0); Hemoglobin 10.1 GM/DL (14.0-18.0); Immature Granulocytes % 2.7 %; Immature Granulocytes Absolute 0.22 #; Lymphocytes # 1.5 10*3/uL (1.4-4.0); Lymphocytes % 18.8 % (21.2-54.2); Mean Corpuscular HGB Conc 32.9 GM/DL (32-36); Mean Corpuscular Volume 87.7 FL (87-102); Mean Platelet Volume 9.4 FL (9.6-12.0); Monocytes # 0.7 10*3/uL (0.11-0.8); Monocytes % 8.4 % (1.7-12.7); Neutrophils % 64.5 % (38.7-73.9); Platelet Count 350 T/CUMM (130-400); Red Cell Distribution Width 13.1 % (9.3-17.3); White Blood Count 8.1 T/CUMM (4-12)
[2021-11-13 07:20] LABS: Potassium 3.8 MMOL/L (3.5-5.1)
[2021-11-13] MEDS: FAT EMULSION 20% 250 ML IV SCH (09:28)
[2021-11-13] MEDS: TAMSULOSIN 0.4 MG CAPSULE PO SCH ×2 (09:28→20:23)
[2021-11-13] MEDS: OLMESARTAN 20 MG TABLET PO SCH (09:28)
[2021-11-13] MEDS: PANTOPRAZOLE 40 MG TABLET PO SCH (09:28)
[2021-11-13] MEDS: MULTIVITAMIN INJ 10 ML in AMINO ACIDS/DEXT/LYTES 5-15% 2,000 ML IV SCH (13:47)
[2021-11-13] MEDS ORDERED: PHENOL 1.4% THROAT SPRAY 177 ML BOTTLE PO PRN (14:38)
[2021-11-13] MEDS: DEXTROSE 5% LACTATED RINGERS 1,000 ML IV SCH (15:19)
[2021-11-13] MEDS: FINASTERIDE 5 MG TABLET PO SCH (20:23)
[2021-11-14] MEDS: INSULIN REGULAR 100 UNIT/ML SUBCUT SCH ×2 (05:39→11:48)
[2021-11-14] MEDS: LEVOTHYROXINE 150 MCG TABLET PO SCH (05:49)
[2021-11-14] MEDS: TAMSULOSIN 0.4 MG CAPSULE PO SCH (08:23)
[2021-11-14] MEDS: PANTOPRAZOLE 40 MG TABLET PO SCH (08:23)
[2021-11-14] MEDS: OLMESARTAN 20 MG TABLET PO SCH (08:23)
[2021-11-14] MEDS ORDERED: CHOLECALCIFEROL 1,000 UNIT TABLET PO SCH (09:00)
[2021-11-14] MEDS ORDERED: POLYETHYLENE GLYCOL POWDER 17 GM PACK PO SCH (09:00)
[2021-11-14] MEDS: MULTIVITAMIN INJ 10 ML in AMINO ACIDS/DEXT/LYTES 5-15% 2,000 ML IV SCH (10:09)
[2021-11-14 12:12] VITALS: BP 139/73
== END 2021-11-14 16:20 | disposition home health service (06) | DRG 853 ==
LOC: N.ED 06:55 → N.ICU 11:33 → N.5E 11-08 15:26
PROVIDERS: ADMIT Surgery; ATTEND Surgery

== ENCOUNTER 2022-02-20 05:44 | Inpatient (IN) ==
[2022-02-18 11:46] LABS: Basophils # 0.1 10*3/uL (0.0-0.2); Basophils % 0.8 % (0.0-0.8); Eosinophils # 0.2 10*3/uL (0.0-0.87); Eosinophils % 2.4 % (0.00-10.9); Hematocrit 44.4 VOL% (42.0-52.0); Hemoglobin 14.7 GM/DL (14.0-18.0); Lymphocytes # 2.4 10*3/uL (1.4-4.0); Lymphocytes % 24.3 % (21.2-54.2); Mean Corpuscular HGB Conc 33.1 GM/DL (32-36); Mean Corpuscular Volume 88.3 FL (87-102); Monocytes % 9.5 % (1.7-12.7); Platelet Count 243 T/CUMM (130-400); Red Blood Count 5.03 MC/CUMM (3.8-5.5); Red Cell Distribution Width 15.3 % (9.3-17.3)
[2022-02-18 12:09] LABS: Calcium 9.1 MG/DL (8.5-10.1); Osmolality,Calculated 274.7 MOS/KG (273-304); Potassium 5.2 MMOL/L (3.5-5.1)
[2022-02-20] MEDS ORDERED: metroNIDAZOLE INJ 500 MG/100 ML PREMIX IV ONE (06:00)
[2022-02-20] MEDS ORDERED: CIPROFLOXACIN INJ 400 MG/200 ML PREMIX IV ONE (06:00)
[2022-02-20] MEDS ORDERED: SUCCINYLCHOLINE 200 MG/10 ML VIAL ONE (06:42)
[2022-02-20] MEDS ORDERED: propofoL 200 MG/20 ML VIAL IV ONE (06:42)
[2022-02-20] MEDS ORDERED: ONDANSETRON 4 MG/2 ML VIAL ONE (06:42)
[2022-02-20] MEDS ORDERED: DEXAMETHASONE 4 MG/1 ML VIAL ONE (06:42)
[2022-02-20] MEDS ORDERED: ROCURONIUM 50 MG/5 ML VIAL IV ONE ×2 (06:42→09:11)
[2022-02-20] MEDS ORDERED: MIDAZOLAM 2 MG/2 ML VIAL ONE (06:42)
[2022-02-20] MEDS ORDERED: LIDOCAINE 2% 5 ML VIAL ONE (06:42)
[2022-02-20] MEDS ORDERED: fentaNYL 100 MCG/2 ML VIAL ONE ×2 (06:42→07:56)
[2022-02-20] MEDS ORDERED: LACTATED RINGERS 1,000 ML IV SCH (07:00)
[2022-02-20] MEDS ORDERED: ePHEDrine 50 MG/ML VIAL ONE (07:46)
[2022-02-20] MEDS ORDERED: ACETAMINOPHEN INJ 1,000 MG/100 ML VIAL IV ONE (07:56)
[2022-02-20] MEDS ORDERED: DEXMEDETOMIDINE 200 MCG/2 ML VIAL ONE (09:11)
[2022-02-20] MEDS ORDERED: SUGAMMADEX 200 MG/2 ML VIAL IV ONE (09:12)
[2022-02-20] MEDS ORDERED: BUPIVACAINE MPF 0.25% 10 ML VIAL ONE ×2 (09:12→09:26)
[2022-02-20] MEDS ORDERED: ACETAMINOPHEN 325 MG TABLET PO PRN (12:10)
[2022-02-20] MEDS ORDERED: KETOROLAC 15 MG/1 ML VIAL IV PRN (12:10)
[2022-02-20] MEDS ORDERED: ONDANSETRON 4 MG/2 ML VIAL IV PRN (12:10)
[2022-02-20] MEDS ORDERED: HYDROmorphone 1 MG/1 ML SYRINGE IV PRN (12:10)
[2022-02-20] MEDS: HYDROmorphone 1 MG/1 ML SYRINGE IV PRN ×3 (12:50→22:05)
[2022-02-20] MEDS: LACTATED RINGERS 1,000 ML IV SCH ×2 (14:00→22:08)
[2022-02-20] MEDS: metroNIDAZOLE INJ 500 MG/100 ML PREMIX IV SCH (17:17)
[2022-02-21] MEDS: metroNIDAZOLE INJ 500 MG/100 ML PREMIX IV SCH (02:29)
[2022-02-21] MEDS: HYDROmorphone 1 MG/1 ML SYRINGE IV PRN ×3 (04:12→21:14)
[2022-02-21] MEDS: LACTATED RINGERS 1,000 ML IV SCH ×3 (05:12→21:16)
[2022-02-21] MEDS: ENOXAPARIN 30 MG/0.3 ML SYRINGE SUBCUT SCH (05:42)
[2022-02-21] MEDS ORDERED: LEVOFLOXACIN INJ 500 MG/100 ML PREMIX IV ONE (06:00)
[2022-02-21 06:16] LABS: Basophils % 0.1 % (0.0-0.8); Hematocrit 37.7 VOL% (42.0-52.0); Hemoglobin 12.4 GM/DL (14.0-18.0); Immature Granulocytes % 0.7 %; Immature Granulocytes Absolute 0.08 #; Lymphocytes # 1.6 10*3/uL (1.4-4.0); Mean Corpuscular HGB Conc 32.9 GM/DL (32-36); Mean Corpuscular Volume 89.3 FL (87-102); Mean Platelet Volume 9.7 FL (9.6-12.0); Neutrophils % 78.2 % (38.7-73.9); Platelet Count 188 T/CUMM (130-400); Red Blood Count 4.22 MC/CUMM (3.8-5.5); Red Cell Distribution Width 15.5 % (9.3-17.3); White Blood Count 12.2 T/CUMM (4-12)
[2022-02-21 06:27] LABS: Calcium 8.6 MG/DL (8.5-10.1); Osmolality,Calculated 283.1 MOS/KG (273-304); Potassium 4.6 MMOL/L (3.5-5.1)
[2022-02-21] MEDS: PANTOPRAZOLE 40 MG VIAL IV SCH (08:57)
[2022-02-21] MEDS: TAMSULOSIN 0.4 MG CAPSULE PO SCH ×2 (14:25→21:13)
[2022-02-21] MEDS ORDERED: LACTATED RINGERS 1,000 ML IV ONE (14:30)
[2022-02-22] MEDS: HYDROmorphone 1 MG/1 ML SYRINGE IV PRN ×4 (03:05→23:26)
[2022-02-22] MEDS: LACTATED RINGERS 1,000 ML IV SCH ×3 (04:54→20:42)
[2022-02-22] MEDS: LEVOTHYROXINE 175 MCG TABLET PO SCH (06:06)
[2022-02-22] MEDS: ENOXAPARIN 30 MG/0.3 ML SYRINGE SUBCUT SCH (06:06)
[2022-02-22 06:11] LABS: Basophils % 0.3 % (0.0-0.8); Eosinophils # 0.2 10*3/uL (0.0-0.87); Eosinophils % 2.1 % (0.00-10.9); Hematocrit 40.1 VOL% (42.0-52.0); Hemoglobin 13.2 GM/DL (14.0-18.0); Immature Granulocytes Absolute 0.09 #; Lymphocytes # 1.4 10*3/uL (1.4-4.0); Lymphocytes % 15.1 % (21.2-54.2); Mean Corpuscular HGB Conc 32.9 GM/DL (32-36); Mean Corpuscular Volume 87.6 FL (87-102); Mean Platelet Volume 9.6 FL (9.6-12.0); Monocytes # 0.8 10*3/uL (0.11-0.8); Neutrophils % 72.5 % (38.7-73.9); Platelet Count 188 T/CUMM (130-400); Red Blood Count 4.58 MC/CUMM (3.8-5.5); Red Cell Distribution Width 15.4 % (9.3-17.3)
[2022-02-22 06:17] LABS: Calcium 8.3 MG/DL (8.5-10.1); Potassium 3.5 MMOL/L (3.5-5.1)
[2022-02-22] MEDS: OLMESARTAN 20 MG TABLET PO SCH (08:01)
[2022-02-22] MEDS: PANTOPRAZOLE 40 MG VIAL IV SCH (08:01)
[2022-02-22] MEDS: TAMSULOSIN 0.4 MG CAPSULE PO SCH ×2 (08:01→20:42)
[2022-02-23] MEDS: ENOXAPARIN 30 MG/0.3 ML SYRINGE SUBCUT SCH (06:58)
[2022-02-23] MEDS: LEVOTHYROXINE 175 MCG TABLET PO SCH (06:58)
[2022-02-23] MEDS: LACTATED RINGERS 1,000 ML IV SCH ×2 (07:38→17:50)
[2022-02-23] MEDS: TAMSULOSIN 0.4 MG CAPSULE PO SCH ×2 (08:55→20:33)
[2022-02-23] MEDS: OLMESARTAN 20 MG TABLET PO SCH (08:55)
[2022-02-23] MEDS: HYDROmorphone 1 MG/1 ML SYRINGE IV PRN ×3 (08:56→21:42)
[2022-02-23] MEDS: PANTOPRAZOLE 40 MG VIAL IV SCH (08:56)
[2022-02-23] MEDS: SIMETHICONE CHEW 125 MG TABLET PO PRN ×3 (09:00→21:41)
[2022-02-24] MEDS: ENOXAPARIN 30 MG/0.3 ML SYRINGE SUBCUT SCH (06:35)
[2022-02-24] MEDS: LEVOTHYROXINE 175 MCG TABLET PO SCH (06:35)
[2022-02-24] MEDS: HYDROmorphone 1 MG/1 ML SYRINGE IV PRN (06:37)
[2022-02-24] MEDS: TAMSULOSIN 0.4 MG CAPSULE PO SCH (09:12)
[2022-02-24] MEDS: PANTOPRAZOLE 40 MG VIAL IV SCH (09:12)
[2022-02-24] MEDS: OLMESARTAN 20 MG TABLET PO SCH (09:12)
[2022-02-24 12:25] VITALS: BP 100/57
== END 2022-02-24 13:33 | disposition home or self-care (01) | DRG 331 ==
LOC: N.OR 05:44 → N.SDSINP 05:45 → N.3E 10:54
PROVIDERS: ADMIT Surgery; ATTEND Surgery

== ENCOUNTER 2022-09-14 09:32 | Inpatient (IN) ==
[2022-09-14] MEDS ORDERED: SODIUM CHLORIDE 0.9% 1,000 ML IV STA (10:09)
[2022-09-14] MEDS ORDERED: KETOROLAC 30 MG/1 ML VIAL IV STA (10:09)
[2022-09-14 10:41] LABS: Basophils # 0.1 10*3/uL (0.0-0.2); Basophils % 0.6 % (0.0-0.8); Eosinophils # 0.3 10*3/uL (0.0-0.87); Eosinophils % 3.3 % (0.00-10.9); Hematocrit 40.7 VOL% (42.0-52.0); Hemoglobin 13.8 GM/DL (14.0-18.0); Immature Granulocytes % 3.2 %; Lymphocytes # 1.6 10*3/uL (1.4-4.0); Lymphocytes % 16.9 % (21.2-54.2); Mean Corpuscular HGB Conc 33.9 GM/DL (32-36); Mean Corpuscular Volume 89.3 FL (87-102); Mean Platelet Volume 9.2 FL (9.6-12.0); Monocytes # 1.3 10*3/uL (0.11-0.8); Monocytes % 13.3 % (1.7-12.7); Neutrophils % 62.7 % (38.7-73.9); Platelet Count 249 T/CUMM (130-400); Red Blood Count 4.56 MC/CUMM (3.8-5.5); Red Cell Distribution Width 13.8 % (9.3-17.3); White Blood Count 9.37 T/CUMM (4-12)
[2022-09-14 11:02] LABS: Albumin 2.9 G/DL (3.4-5.0); Bilirubin,Total 0.7 MG/DL (0.20-1.00); Calcium 8.9 MG/DL (8.5-10.1); Osmolality,Calculated 266.2 MOS/KG (273-304); Potassium 4.2 MMOL/L (3.5-5.1); Total Protein 6.5 G/DL (6.4-8.2)
[2022-09-14 12:56] LABS: Bilirubin,Urine Negative (Negative); Blood, Urine Negative (Negative); Glucose,Urine (UA) Negative (Negative); Ketones,Urine Negative (Negative); Nitrite,Urine Negative (Negative); Protein,Urine Negative (Negative); Urine Appearance Clear (Clear); Urine Color Yellow (Yellow); Urine Urobilinogen 0.2 eU/dL (<2.0)
[2022-09-14] MEDS ORDERED: MORPHINE 2 MG/1 ML SYRINGE IV PRN (14:16)
[2022-09-14] MEDS ORDERED: ACETAMINOPHEN 325 MG TABLET PO PRN (14:16)
[2022-09-14] MEDS: LACTATED RINGERS 1,000 ML IV SCH ×2 (14:38→21:30)
[2022-09-14] MEDS ORDERED: LEVOFLOXACIN INJ 750 MG/150 ML PREMIX IV SCH (15:00)
[2022-09-14] MEDS: metroNIDAZOLE INJ 500 MG/100 ML PREMIX IV SCH (17:08)
[2022-09-14] MEDS: HYDROmorphone 1 MG/1 ML SYRINGE IV PRN (20:08)
[2022-09-15] MEDS: HYDROmorphone 1 MG/1 ML SYRINGE IV PRN ×4 (00:05→22:32)
[2022-09-15] MEDS: LACTATED RINGERS 1,000 ML IV SCH ×3 (02:10→12:33)
[2022-09-15] MEDS: metroNIDAZOLE INJ 500 MG/100 ML PREMIX IV SCH ×2 (02:10→08:24)
[2022-09-15] MEDS: PANTOPRAZOLE 40 MG TABLET PO SCH (08:24)
[2022-09-15 08:44] LABS: INR 1.1; PT Patient Result 11.6 SECS (10.1-12.1)
[2022-09-15] MEDS: MEROPENEM 500 MG in SODIUM CHLORIDE 0.9% 100 ML IV SCH ×3 (11:30→22:30)
[2022-09-15] MEDS: ONDANSETRON 4 MG/2 ML VIAL IV PRN (15:07)
[2022-09-16] MEDS: HYDROmorphone 1 MG/1 ML SYRINGE IV PRN ×3 (03:58→20:38)
[2022-09-16] MEDS: MEROPENEM 500 MG in SODIUM CHLORIDE 0.9% 100 ML IV SCH ×4 (04:00→20:33)
[2022-09-16 05:24] LABS: Basophils % 0.4 % (0.0-0.8); Eosinophils # 0.2 10*3/uL (0.0-0.87); Eosinophils % 3.2 % (0.00-10.9); Hematocrit 35.9 VOL% (42.0-52.0); Hemoglobin 12.2 GM/DL (14.0-18.0); Immature Granulocytes % 1.6 %; Immature Granulocytes Absolute 0.12 #; Lymphocytes # 1.3 10*3/uL (1.4-4.0); Lymphocytes % 17.1 % (21.2-54.2); Mean Corpuscular Volume 87.1 FL (87-102); Mean Platelet Volume 8.7 FL (9.6-12.0); Monocytes % 12.8 % (1.7-12.7); Neutrophils % 64.9 % (38.7-73.9); Platelet Count 223 T/CUMM (130-400); Red Blood Count 4.12 MC/CUMM (3.8-5.5); Red Cell Distribution Width 13.6 % (9.3-17.3); White Blood Count 7.41 T/CUMM (4-12)
[2022-09-16 05:48] LABS: Calcium 8.4 MG/DL (8.5-10.1); Osmolality,Calculated 264.2 MOS/KG (273-304); Potassium 3.6 MMOL/L (3.5-5.1)
[2022-09-16] MEDS: ASPIRIN EC 81 MG TABLET PO SCH (08:58)
[2022-09-16] MEDS: OLMESARTAN 5 MG TABLET PO SCH (08:58)
[2022-09-16] MEDS: LEVOTHYROXINE 175 MCG TABLET PO SCH (08:58)
[2022-09-16] MEDS: TAMSULOSIN 0.4 MG CAPSULE PO SCH (09:00)
[2022-09-16] MEDS: PANTOPRAZOLE 40 MG TABLET PO SCH (09:00)
[2022-09-16] MEDS: LACTATED RINGERS 1,000 ML IV SCH ×3 (09:01→23:20)
[2022-09-16] MEDS: ONDANSETRON 4 MG/2 ML VIAL IV PRN ×2 (15:46→20:37)
[2022-09-17] MEDS: MEROPENEM 500 MG in SODIUM CHLORIDE 0.9% 100 ML IV SCH ×4 (02:41→21:51)
[2022-09-17] MEDS: HYDROmorphone 1 MG/1 ML SYRINGE IV PRN ×4 (02:44→19:59)
[2022-09-17] MEDS: TAMSULOSIN 0.4 MG CAPSULE PO SCH (08:54)
[2022-09-17] MEDS: LEVOTHYROXINE 175 MCG TABLET PO SCH (08:54)
[2022-09-17] MEDS: OLMESARTAN 5 MG TABLET PO SCH (08:54)
[2022-09-17] MEDS: PANTOPRAZOLE 40 MG TABLET PO SCH (08:54)
[2022-09-17] MEDS: ASPIRIN EC 81 MG TABLET PO SCH (08:54)
[2022-09-17] MEDS: ONDANSETRON 4 MG/2 ML VIAL IV PRN ×3 (08:58→19:58)
[2022-09-17 14:55] LABS: Basophils # 0.1 10*3/uL (0.0-0.2); Basophils % 0.7 % (0.0-0.8); Eosinophils # 0.2 10*3/uL (0.0-0.87); Eosinophils % 3.2 % (0.00-10.9); Hematocrit 35.5 VOL% (42.0-52.0); Hemoglobin 12.1 GM/DL (14.0-18.0); Immature Granulocytes % 1.2 %; Immature Granulocytes Absolute 0.08 #; Lymphocytes # 1.4 10*3/uL (1.4-4.0); Lymphocytes % 19.9 % (21.2-54.2); Mean Corpuscular HGB Conc 34.1 GM/DL (32-36); Mean Corpuscular Volume 87.9 FL (87-102); Mean Platelet Volume 8.9 FL (9.6-12.0); Monocytes # 0.9 10*3/uL (0.11-0.8); Monocytes % 12.4 % (1.7-12.7); Neutrophils % 62.6 % (38.7-73.9); Platelet Count 262 T/CUMM (130-400); Red Blood Count 4.04 MC/CUMM (3.8-5.5); Red Cell Distribution Width 13.5 % (9.3-17.3); White Blood Count 6.95 T/CUMM (4-12)
[2022-09-17 15:15] LABS: Albumin 2.5 G/DL (3.4-5.0); Bilirubin,Total 0.6 MG/DL (0.20-1.00); Calcium 8.1 MG/DL (8.5-10.1); Osmolality,Calculated 269.8 MOS/KG (273-304); Potassium 3.8 MMOL/L (3.5-5.1); Total Protein 5.1 G/DL (6.4-8.2)
[2022-09-17] MEDS: LACTATED RINGERS 1,000 ML IV SCH (15:43)
[2022-09-17] MEDS ORDERED: COLCHICINE 0.6 MG CAPSULE PO ONE (16:00)
[2022-09-18] MEDS: HYDROmorphone 1 MG/1 ML SYRINGE IV PRN ×4 (00:12→20:16)
[2022-09-18] MEDS: MEROPENEM 500 MG in SODIUM CHLORIDE 0.9% 100 ML IV SCH ×4 (03:41→20:19)
[2022-09-18] MEDS: LACTATED RINGERS 1,000 ML IV SCH ×3 (06:40→09:50)
[2022-09-18] MEDS: TAMSULOSIN 0.4 MG CAPSULE PO SCH (08:22)
[2022-09-18] MEDS: PANTOPRAZOLE 40 MG TABLET PO SCH (08:22)
[2022-09-18] MEDS: COLCHICINE 0.6 MG CAPSULE PO SCH (08:22)
[2022-09-18] MEDS: LEVOTHYROXINE 175 MCG TABLET PO SCH (08:22)
[2022-09-18] MEDS: OLMESARTAN 5 MG TABLET PO SCH (08:22)
[2022-09-18] MEDS: ASPIRIN EC 81 MG TABLET PO SCH (08:22)
[2022-09-18] MEDS: ONDANSETRON 4 MG/2 ML VIAL IV PRN (18:20)
[2022-09-19] MEDS: LACTATED RINGERS 1,000 ML IV SCH (00:44)
[2022-09-19] MEDS: HYDROmorphone 1 MG/1 ML SYRINGE IV PRN ×2 (03:32→10:03)
[2022-09-19] MEDS: MEROPENEM 500 MG in SODIUM CHLORIDE 0.9% 100 ML IV SCH ×2 (03:34→09:55)
[2022-09-19 08:05] VITALS: BP 103/61
[2022-09-19] MEDS: COLCHICINE 0.6 MG CAPSULE PO SCH (09:56)
[2022-09-19] MEDS: LEVOTHYROXINE 175 MCG TABLET PO SCH (09:56)
[2022-09-19] MEDS: TAMSULOSIN 0.4 MG CAPSULE PO SCH (09:56)
[2022-09-19] MEDS: OLMESARTAN 5 MG TABLET PO SCH (09:56)
[2022-09-19] MEDS: PANTOPRAZOLE 40 MG TABLET PO SCH (09:57)
[2022-09-19] MEDS: ASPIRIN EC 81 MG TABLET PO SCH (09:57)
== END 2022-09-19 12:15 | disposition home or self-care (01) | DRG 391 ==
LOC: N.ED 09:32 → N.2E 12:32
PROVIDERS: ADMIT Surgery; ATTEND Surgery